=== PATIENT | male | born 2000 | race Two or more races ===

== ENCOUNTER 2020-09-30 09:41 | Outpatient (REF) | payer MEDICAID, SELFPAY | END 2020-09-30 09:42 | disposition home or self-care (01) | LOC: HO.LAB 09:41 | PROVIDERS: Visit Provider Internal Medicine | DX: Z20.822 Contact with and (suspected) exposure to COVID-19 (principal) | CPT/HCPCS: C9803; U0003; U0005 ==

== ENCOUNTER 2021-01-06 07:21 | Outpatient (REF) | payer MEDICAID, SELFPAY | END 2021-01-06 07:22 | disposition home or self-care (01) | LOC: HO.LAB 07:21 | PROVIDERS: Visit Provider Internal Medicine | DX: Z20.822 Contact with and (suspected) exposure to COVID-19 (principal) | CPT/HCPCS: C9803; U0003; U0005 ==

== ENCOUNTER 2021-02-18 15:30 | Emergency (ER) | payer MEDICAID, SELFPAY ==
--- NOTE | ~2021-02-18 | XR_ITS ---
EXAMINATION: XR LUMBOSACRAL SPINE CLINICAL INFORMATION: Low back pain after lifting COMPARISON: None TECHNIQUE: Three views of the lumbosacral spine. FINDINGS: The vertebral bodies and posterior elements are normal. The disc spaces are preserved and the vertebral alignment is normal. The paraspinal soft tissues are normal. XR/XR lumbar spine 2-3V IMPRESSION: Unremarkable examination.
[2021-02-18 16:08] VITALS: BP 139/65; PULSE 60; RESP 16; TEMP 37.2; O2SAT 98; BMI 28.1
--- NOTE | 2021-02-18 17:29 | ED.BACK ---
HPI - Back Pain/Injury General Chief Complaint: Back Pain/Injury Stated Complaint: back pain Time Seen by Provider: 02/18/21 17:01 Source: patient Mode of arrival: ambulatory Limitations: language barrier ([place]) History of Present Illness MD elicited complaint: back pain and back injury Onset (ago): day(s) (4 DAYS) Timing: constant and progressively worsening Severity: mild Quality: spasming Location: lumbar spine Radiation: none Exacerbating factors: movement, lifting and other (And bending over) Relieving factors: none Context: while lifting Associated symptoms: denies other symptoms Work related injury: Yes Related Data Previous Rx's Medication Instructions Recorded acetaminophen 500 mg tablet 1,000 mg PO QID PRN #14 tab 02/18/21 (Tylenol Extra Strength) cyclobenzaprine 10 mg tablet 10 mg PO Q8H PRN #14 tab 02/18/21 ibuprofen 800 mg tablet 800 mg PO Q8H PRN #14 tab 02/18/21 Allergies Allergy/AdvReac Type Severity Reaction Status Date / Time No Known Allergies Allergy Unverified 01/04/20 19:43 [No Known Allergies*] Review of Systems Review of Systems: Constitutional : No trauma, No Weight loss, No Fever, No Chills, ENT/Mouth : No Hearing loss, No Ear Pain, No Nasal Congestion, No Sinus Pain, No Hoarseness, No sore throat, No Rhinorrhea, No Swallowing Difficulty Cardiovascular : No Chest Pain, No SOB Respiratory : No Cough, No Dyspnea Gastrointestinal : No Nausea, No Vomiting, No Diarrhea, No abdominal Pain, No Hematochezia, No Melena Genitourinary : No Dysuria, No Urinary Frequency, No Hematuria, No Urinary or Bowel Incontinence/retention Musculoskeletal : + Back pain, No neck pain, No joint stiffness, No joint swelling Skin : No Skin Lesions, No rash or signs of infection Neuro : No Weakness, No radiation, No Numbness, No Paresthesias, No headache, no loss of bowel or bladder incontinence, no saddle anesthesia, Focal weakness, No radiation Denies history of IV drug usage. Yes all other systems are reviewed and are negative [facility] Past Medical History Attestation statement: The following information was validated with the patient. Social History Social History Advance Directives: No Advance Directives Information Provided: No Physical Exam Vital Signs: Vital Signs: Last Vital Signs Temp 98.9 F 02/18/21 16:08 Pulse 60 02/18/21 16:08 Resp 16 02/18/21 16:08 BP 139/65 02/18/21 16:08 Pulse Ox 98 02/18/21 16:08 Body Mass Index 28.1 vital signs have been reviewed as normal and appeared to be correct. Blood pressure normal. Heart rate normal. Respiration rate normal. Temperature normal. Oxygen saturation normal. Appearance: Alert. Oriented X3. No acute distress. Head: Normal external exam. Normocephalic. Atraumatic. No Mejias signs noted. No raccoon eyes noted Eyes: PERRLA. EOMI. Conjunctiva and sclera normal. Eyelids normal. ENT: EAC normal. TM's Normal. Pharynx normal. Uvula midline. Moist mucous membranes. No trismus noted. No drooling noted. No muffled voice noted. Neck: Normal inspection. Neck supple. FROM. No adenopathy. Thyroid Normal. No meningeal signs. No neck mass noted. CVS: Normal heart rate and rhythm. Heart sound normal. No murmurs noted. Pulses normal throughout. Respiratory: No respiratory distress. Painless inspiration. Breath sounds normal. No wheezes/rales/rhonchi noted. Chest nontender. No accessory muscle usage noted or decreased air movement noted. Abdomen: Soft and nontender. Bowel sounds normal in all 4 quadrants. No distention noted. No organomegaly noted. No visible injury noted. Back: No CVA tenderness. Full range of motion noted. No obvious deformities, or edema. Mild para-spinal muscular tenderness from lumbar region to coccyx. Full ROM in back and lower extremities. 5/5 strength hip extension/flexion, abduction, adduction. Mild Lumbar pain with hip flexion against resistance. Straight leg raise test negative on right; Straight leg raise test negative on left; Reflexes normal ankle and knee bilaterally; EHL motor strength normal bilaterally. No rashes/lesion/induration/fluctuance or signs infection noted. Skin: Skin warm and dry. Normal skin color. Normal skin turgor. No rashes/lesions/lacerations noted. Extremities: No lower extremity edema. Extremities exhibit normal range of motion. Extremities nontender. Neuro: Oriented X 3. No motor deficit. No sensory deficit. Reflexes normal. Patient has a normal steady gait. Course Course Course Narrative: Pt c likely muscular pain, but could be herniated disc. Neuro exam shows no deficits. Not c/w AAA/epidural abscess/dissection.No high risk Hx (Incont, fever, immunosupp, recent surgery/LP, coag, signif trauma, wt loss, puls mass, hx/o Ca, TB, or IVDU) to warrant MRI/CT today. Not c/w Pyelo/UTI/kidney stone/spinal fx. Not cauda equina syndrome. Patient requesting x-ray imaging therefore will obtain an x-ray if negative will DC home with symptomatic treatment and instructions return if any new or worsening symptoms to follow up with primary care provider. Patient understands agrees with this plan. MDM - Back Pain/Injury Medical Records Attestation: I reviewed the patient's medical records. Imaging Data Lumbar spine x-ray: Attestation: I personally reviewed and interpreted this imaging study as follows: Radiologist's impression: FINDINGS: The vertebral bodies and posterior elements are normal. The disc spaces are preserved and the vertebral alignment is normal. The paraspinal soft tissues are normal. XR/XR lumbar spine 2-3V IMPRESSION: Unremarkable examination. Discharge Plan Discharge Clinical Impression: Strain of lumbar region, Work related injury Patient Disposition: Home, Self-Care Instructions: Low Back Strain (ED), Lower Back Exercises (ED) Prescriptions: New cyclobenzaprine 10 mg tablet 10 mg PO Q8H PRN (Reason: Muscle spasm) Qty: 14 RF: 0 ibuprofen 800 mg tablet 800 mg PO Q8H PRN (Reason: pain) Qty: 14 RF: 0 acetaminophen [Tylenol Extra Strength] 500 mg tablet 1,000 mg PO QID PRN (Reason: fever or pain) Qty: 14 RF: 0 Referrals: Physician,Unknown J [Primary Care Provider] - 2 days (your pcp) Stand Alone Forms: Work/School Release Print Language: [place]
== END 2021-02-18 18:20 | disposition home or self-care (01) ==
PROVIDERS: Emergency Provider Emergency Medicine
DX: S39.012A Strain of muscle, fascia and tendon of lower back, initial encounter (principal); X50.0XXA Overexertion from strenuous movement or load, initial encounter; Y93.9 Activity, unspecified; Y92.9 Unspecified place or not applicable; Y99.0 Civilian activity done for income or pay; Z79.899 Other long term (current) drug therapy
CPT/HCPCS: 72100; 99283

== ENCOUNTER 2021-11-14 10:20 | Outpatient (REF) | payer MEDICAID, SELFPAY ==
[2021-11-14 10:48] LABS: MANUAL DIFF FLAG NO
[2021-11-14 11:30] LABS: Basophils Percent Auto 0.6 % (0-2); Eosinophils Absolute Auto 0.1 X10*3/uL (0.0-0.4); Eosinophils Percent Auto 1.7 % (0-4); Hematocrit 45.3 % (42.0-52.0); Hemoglobin 15.6 g/dl (14.0-18.0); Imm Gran Abs Auto 0.01 X10*3/uL (0.00-0.03); Imm Gran Pct Auto 0.2 % (0.0-0.4); Lymphocytes Absolute Auto 2.2 X10*3/uL (1.2-4.9); Lymphocytes Percent Auto 42.2 % (20-40); Mean Corpuscular HGB Conc 34.4 g/dl (31.0-36.0); Mean Corpuscular Hemoglobin 30.3 pg (27.0-33.0); Mean Platelet Volume 9.4 fL (9.4-12.4); Monocytes Absolute Auto 0.6 X10*3/uL (0.1-1.2); Monocytes Percent Auto 10.9 % (2-11); Neutrophils Absolute Auto 2.3 x10*3/uL (2.0-8.3); Neutrophils Percent Auto 44.4 % (45-73); Platelet Count 230 X10*3/uL (160-400); Red Blood Count 5.15 X10*6/uL (4.60-5.80); Red Cell Distribution Width 12.3 % (11.0-16.0); White Blood Count 5.2 X10*3/uL (4.8-10.8)
[2021-11-14 11:40] LABS: Estimated Average Glucose 91 mg/dL; Hemoglobin A1c % 4.8 %
[2021-11-14 12:09] LABS: Alanine Aminotransferase 36 U/L (0-40); Albumin Level 4.7 g/dL (3.5-5.0); Alkaline Phosphatase 60 U/L (39-117); Anion Gap 12 (12-20); Aspartate Amino Transferase 19 U/L (5-37); Bilirubin Total 0.6 mg/dL (0.0-1.0); Blood Urea Nitrogen 11 mg/dL (9-16); Calcium 9.6 mg/dL (8.4-10.2); Carbon Dioxide 28 mmol/L (22-29); Chloride 104 mmol/L (96-108); Estimated Glomerular Filt Rate > 60; Glucose Random 93 mg/dL (60-115); Potassium 4.1 mmol/L (3.3-5.1); Sodium 140 mmol/L (135-145); Total Protein 7.6 g/dL (6.5-8.0)
[2021-11-14 12:15] LABS: HBsAGNum1 0.21 S/CO (0.00-0.99); HIV AB/AG Nonreactive (Nonreactive); Hepatitis B Surface Antigen Negative (Negative); ~HepC Num1 0.09 S/CO (0.00-0.79); ~Hepatitis C Antibody Nonreactive (Nonreactive)
[2021-11-14 12:17] LABS: Syphilis Screen Nonreactive (Nonreactive)
[2021-11-14 12:26] LABS: Folate 10.1 ng/mL (> or = 4.0); Vitamin B12 454 pg/mL (200-900)
[2021-11-14 14:04] LABS: CT PCR NOT DETECTED (Not Detect.); NG PCR NOT DETECTED (Not Detect.)
== END 2021-11-14 10:21 | disposition home or self-care (01) ==
LOC: HO.LAB 10:20
PROVIDERS: PCP Family Medicine; Visit Provider Family Medicine
DX: Z11.4 Encounter for screening for human immunodeficiency virus [HIV] (principal); Z11.3 Encounter for screening for infections with a predominantly sexual mode of transmission; R42 Dizziness and giddiness
CPT/HCPCS: 80053; 82607; 82746; 83036; 85025; 86780; 86803; 87340; 87389; 87491; 87591

== ENCOUNTER 2024-05-02 15:21 | Emergency (ER) | payer MEDICAID, SELFPAY ==
[2024-05-02 15:34] VITALS: BP 131/68; PULSE 84; O2SAT 100; BMI 25.1
[2024-05-02 15:41] VITALS: BP 148/65; PULSE 74; RESP 18; TEMP 36.6; O2SAT 97
--- NOTE | 2024-05-02 15:54 | ED.ALLEREA ---
HPI - Allergic Reaction General Chief complaint: Allergic Reaction Stated complaint: allegic reaction, 2 doses of EPI Time Seen by Provider: 05/02/24 15:53 Source: patient and EMS Mode of arrival: EMS Limitations: no limitations and language barrier (Japanese speaking diplomatic interpreter utilized) History of Present Illness ED Provider: jf arredondo np HPI narrative: Patient is a 23-year-old male who presents emergency department for evaluation. 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 States over the past 3 days he awakes in the morning feeling fine does not have anything to eat is simply at home and by the afternoon time he developed swelling and itching surrounding his eyes for which he has taken Benadryl and symptoms have improved. However today at approximately 13:00 he reports that he again had another reaction where the swelling was much more intense to his eyes, he felt his throat closing up he was feeling short of breath he had hives all throughout his body which made him present to [facility] which is local to his home. [facility] he received an EpiPen 50mg of oral Benadryl and 40mg of oral prednisone. EMS was called and he subsequently received a 2nd EpiPen, 50 mg of Benadryl IV and 125 mg of Solu-Medrol IV, and albuterol nebulizer. He reports that he is feeling much better since receiving them. He endorses having slight dizziness and nausea at this time Denies any vision changes, throat closing sensation, shortness of breath, difficulty breathing, abdominal pain, vomiting, diarrhea, constipation. He states he does not have an EpiPen available to him at home. He has never had formal allergy testing, he is awaiting an appointment with his primary care doctor in June of 2024 to have allergy referral sent. Related Data Previous Rx's ?Medication ?Instructions ?Recorded acetaminophen 500 mg tablet 1,000 mg (2 x 500 mg) PO QID PRN 02/18/21 (Tylenol Extra Strength) fever or pain #14 tabs cyclobenzaprine 10 mg tablet 10 mg PO Q8H PRN Muscle spasm #14 02/18/21 tabs ibuprofen 800 mg tablet 800 mg PO Q8H PRN pain #14 tabs 02/18/21 cetirizine 10 mg capsule (All Day 10 mg PO DAILY #30 caps 01/14/25 Allergy (cetirizine)) epinephrine 0.3 mg/0.3 mL 0.3 mg (0.3 mL) IM Q10M PRN 05/02/24 injection, auto-injector anaphylaxis #2 ea prednisone 20 mg tablet 40 mg (2 x 20 mg) PO DAILY #10 tabs 05/02/24 Allergies Allergy/AdvReac Type Severity Reaction Status Date / Time No Known Allergies Allergy Verified 05/02/24 15:47 [No Known Allergies*] Review of Systems Review of Systems: Yes all other systems are reviewed and are negative [facility], [facility] Past Medical History Attestation statement: The following information was validated with the patient. Source: old records reviewed Social History Social History Smoked in Last 30 Days: No Use of substances other than those prescribed or required for medical reasons: No Advance Directives: No Advance Directives Information Provided: No Do you have a plan to hurt others: No Plan Physical Exam ED Vital Signs: Vital Signs - 24 hr 05/02/24 15:41 05/02/24 17:17 05/02/24 19:49 Temperature 97.8 F 98.4 F 98.1 F Pulse Rate 74 68 74 Respiratory Rate 18 16 17 Blood Pressure 148/65 H 123/65 127/63 Pulse Oximetry 97 98 98 Oxygen Delivery Method Room Air Room Air Room Air 05/02/24 20:25 Temperature 98.1 F Pulse Rate 74 Respiratory Rate 17 Blood Pressure 127/63 Pulse Oximetry 98 Oxygen Delivery Method Room Air BMI result Body Mass Index 25.1 Appearance: Alert.?Oriented to person, place and time. No acute distress.?Normal affect. Eyes: Pupils equal, round and reactive to light.? Mild bilateral periorbital swelling. ENT: Pharynx normal.? Uvula midline. No angioedema/ swelling of the tongue/face. ? Neck: Normal inspection.? Neck supple.??No adenopathy CVS: Heart sounds normal. Normal heart rate and rhythm.? Pulses normal.?? Respiratory: No respiratory distress.? Lung sounds clear to auscultation bilaterally?? Abdomen: Soft and non-tender. Normoactive bowel sounds. Skin: Skin warm and dry.? Normal skin color.? No rashes or lesions Extremities: No lower extremity edema.? No calf ttp? Neuro: Moves all extremities spontaneously. Sensation intact bilaterally. No focal neuro deficits. Ambulates with normal steady gait. 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 He was premedicated prior to arrival. Patient well appearing in no acute distress, breathing easily without throat symptoms. Speaking full sentences, and handling secretions without difficulty. There is no obvious threat to airway. Lungs are CTA in all wilkins.? No signs of angioedema, stridor, airway compromise, anaphylaxis or anaphylactic shock. Not c/w SSSS/ TEN/Erythema multiforme/ Baca Johnsons. Given history and physical exam, Will watch and observe. If patient continues to be symptom free, will discharge with script for antihistamine, prednisone, EpiPen with return precautions. Patient understands and agrees with plan. Differential Diagnosis Differential Diagnoses: The differential diagnosis associated with the presentation includes (See narrative above) Admission/Observation Consideration of admission/observation: Escalation of care including admission/observation considered Discharge Plan Discharge Clinical Impression: Allergic reaction Patient Disposition: Home, Self-Care Instructions: Epinephrine (By injection), General Allergic Reaction (ED), Allergy Testing (ED) Additional Instructions: As discussed, it is unclear what you are having an allergic reaction to. You have a known history of shellfish allergy. You have expressed history of concerning reactions amongst cleaning products and different things. You should avoid contact with things in the past that have caused her to have a reaction. I am sending 2 prescriptions to the pharmacy 1 for an antihistamine to take daily, and 1 for prednisone to take daily over the next 5 days. If you are having mild symptoms despite taking these you may take Benadryl at home. If you have a throat closing sensation, swelling of your mouth/tongue, difficulty breathing, shortness of breath, chest pain, then use the EpiPen as instructed. Any time you use the EpiPen you must present to the emergency department for evaluation. Consider changing detergents, soaps, lotions to HYPOALLERGENIC formulations without any sent/perfumes As discussed, you may contact your insurance company to determine whether a referral is required for you to see an garde manger. If it is not you may contact local allergy offices that are within network with your insurance company to determine if they are taking new patients could try and schedule an appointment. If you do require a referral you will need to keep the appointment with your primary care doctor, you may contact the office to see if there is any possibility of getting a sooner appointment. Return to emergency department any new or worsening symptoms or concerns Prescriptions: New All Day Allergy (cetirizine) 10 mg capsule 10 mg PO DAILY Qty: 30 0RF prednisone 20 mg tablet 40 mg PO DAILY Qty: 10 0RF epinephrine 0.3 mg/0.3 mL auto-injector 0.3 mg IM Q10M PRN (Reason: anaphylaxis) Qty: 2 0RF Rx Instructions: for 2 doses No Action cyclobenzaprine 10 mg tablet 10 mg PO Q8H PRN (Reason: Muscle spasm) Qty: 14 0RF ibuprofen 800 mg tablet 800 mg PO Q8H PRN (Reason: pain) Qty: 14 0RF acetaminophen [Tylenol Extra Strength] 500 mg tablet 1,000 mg PO QID PRN (Reason: fever or pain) Qty: 14 0RF Referrals: Ama Amaya MD [Primary Care Provider] - Interventions: ED Discharge Assessment Last Done: 05/02/24 20:25 Discharge Date/Time: 05/02/24 20:25 Print Language: Japanese
[2024-05-02 17:17] VITALS: BP 123/65; PULSE 68; RESP 16; TEMP 36.9; O2SAT 98
--- NOTE | 2024-05-02 17:18 | PC.NURSE ---
vss and up to date. nsr on the playground monitor. pt remains on RA w/o difficulty - no sob/wob noted. respirations even/unlabored. no swelling/hives noted throughout. observation continues at this time. plan of care ongoing. call hurtado placed within reach.
[2024-05-02 19:49] VITALS: BP 127/63; PULSE 74; RESP 17; TEMP 36.7; O2SAT 98
[2024-05-02 20:25] VITALS: BP 127/63; PULSE 74; RESP 17; TEMP 36.7; O2SAT 98
== END 2024-05-02 20:25 | disposition home or self-care (01) ==
PROVIDERS: Emergency Provider Student in an Organized Health Care Education/Training Program; PCP Student in an Organized Health Care Education/Training Program
DX: T78.40XA Allergy, unspecified, initial encounter (principal); R06.02 Shortness of breath; L29.9 Pruritus, unspecified; X58.XXXA Exposure to other specified factors, initial encounter
CPT/HCPCS: 99283; 99284